=== PATIENT | female | born 1975 | race Caucasian/White ===

== ENCOUNTER 2016-08-18 16:04 | Outpatient (CLI) | payer OTHER ==
--- NOTE | 2016-08-18 18:06 | DIAGNOSTIC IMAGING REPORT ---
PROCEDURE: CT ABD/PELVIS WITH CONTRAST CLINICAL INDICATION: LLQ PAIN TECHNIQUE: 125 ml of Isovue 300 were injected intravenously and axial images were obtained of the entire abdomen and pelvis with sagittal and coronal reformations. COMPARISON: CT abdomen/pelvis 04/02/2016 FINDINGS: ABDOMEN: Lung bases are clear. Heart size is normal. Cholecystectomy. Liver, pancreas, spleen, left adrenal gland and both kidneys are normal. Stable 1.3 cm right adrenal mass. Normal abdominal aorta. Nonspecific bowel gas pattern. PELVIS: Mild diverticulosis. No inflammatory changes. Normal appendix. Bilateral ovarian follicular changes. Uterus and bladder are normal. No free fluid. No suspicious osseous lesions. IMPRESSION: 1. Cholecystectomy 2. 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 Mild diverticulosis 4. Results discussed with MAGGIE Kang All CT scans at this facility use dose modulation, iterative reconstruction, and/or weight-based dosing when appropriate to reduce radiation dose to as low as reasonably achievable.
== END 2016-08-18 23:00 ==
LOC: CT SRH 16:04
DX: R10.32 Left lower quadrant pain (principal); K57.90 Diverticulosis of intestine, part unspecified, without perforation or abscess without bleeding; Z90.49 Acquired absence of other specified parts of digestive tract

== ENCOUNTER 2017-01-10 14:53 | Outpatient (CLI) | payer OTHER ==
--- NOTE | 2017-01-10 18:35 | DIAGNOSTIC IMAGING REPORT ---
PROCEDURE: US VENOUS - RIGHT EXT INDICATION: Right leg pain and swelling. History of lupus. TECHNIQUE: Color Doppler duplex imaging of the deep and superficial venous system without and with compression. COMPARISON: None. FINDINGS: Deep and superficial venous system of the right lower extremity is within normal limits. There is no evidence of deep vein thrombosis or superficial thrombophlebitis. Scans were obtained in the region of the patient's clinical symptoms. No evidence of underlying abnormality. IMPRESSION: 1. Negative venous ultrasound of the right lower extremity.
== END 2017-01-10 23:00 | disposition home or self-care (01) ==
LOC: US SRH 14:53
DX: M79.661 Pain in right lower leg (principal); M32.9 Systemic lupus erythematosus, unspecified